=== PATIENT | male | born 2000 | race American Indian/Alaskan Native ===

== ENCOUNTER 2020-06-12 10:58 | Emergency (ER) | payer SELFPAY ==
[2020-06-12] MEDS ORDERED: SODIUM CHLORIDE 0.9% 1000 ML 1,000 ML IV ONE (11:17)
[2020-06-12] MEDS ORDERED: ONDANSETRON 4 MG/2 ML INJ IV ONE (11:25)
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
--- NOTE | 2020-06-12 12:01 | Cat Scan Report ---
CT head/brain wo con INDICATION / CLINICAL INFORMATION: 19 years Male; MAIN. TECHNIQUE: Routine CT head without contrast. All CT scans at this location are performed using CT dos e reduction for ALARA by means of automated exposure control. COMPARISON: None. FINDINGS: BRAIN / INTRACRANIAL CONTENTS: There may be a very small subdural hematoma leftward of midline, along the anterior falx cerebri measuring 1-2 mm in maximum thickness. Couple of small gas bubbles are seen in the soft tissues near the temporomandibular joints and perhap s along the inner table of the left parietal temporal region. Findings may be related to IV placement . However, subtle skull base fractures may be present - CT of the temporal bones may be of benefit. Otherwise, no acute hemorrhage, mass effect, midline shift, hydrocephalus, or acute, large territori al infarct. No chronic infarct or atrophy appreciated. No significant white matter abnormality. CRANIOCERVICAL JUNCTION: No significant abnormality. ORBITS: No significant abnormality of visualized orbits. SINUSES / MASTOIDS: No significant abnormality in the visualized paranasal sinuses or mastoid air varsha ls. ADDITIONAL FINDINGS: Mild subcutaneous soft tissue swelling suggested in the right posterior parietal region. No definitive signs of underlying calvarial fracture appreciated. IMPRESSION: 1. Very small subdural hematoma suggested along the anterior falx cerebri, leftward of midline. Follo w-up exam is recommended to ensure stability and/or resolution of this finding. 2. Cannot exclude small, nondisplaced temporal bone fractures - CT of the temporal bones may be helpf ul for further evaluation. Signer Name: Daryl Dow MD, III Signed: 06/12/2020 11:56 AM Workstation Name: [id number]
[2020-06-12 12:03] LABS: Basophils % (Auto) 0.1 % (0.0-1.8); Eosinophils # (Auto) 0.1 K/mm3 (0.0-0.4); Eosinophils % (Auto) 0.7 % (0.0-4.3); Hematocrit 48.9 % (35.5-45.6); Hemoglobin 16.5 gm/dl (11.8-15.2); Lymphocytes # (Auto) 1.7 K/mm3 (1.2-5.4); Lymphocytes % (Auto) 10.6 % (13.4-35.0); Mean Corpuscular HGB Conc 34 % (32-34); Mean Corpuscular Volume 90 fl (84-94); Monocytes # (Auto) 0.8 K/mm3 (0.0-0.8); Monocytes % (Auto) 4.9 % (0.0-7.3); Platelet Count 210 K/mm3 (140-440); Red Blood Count 5.44 M/mm3 (3.65-5.03)
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
[2020-06-12 12:13] LABS: INR 0.94 (0.87-1.13)
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
[2020-06-12 12:25] LABS: Alanine Aminotransferase 28 units/L (7-56); BUN/Creatinine Ratio 14; Blood Urea Nitrogen 13 mg/dL (9-20); Hemolysis Index 17
[2020-06-12 15:00] VITALS: BP 112/61
== END 2020-06-12 15:00 | disposition other institution (70) ==
LOC: ED 10:58
DX: S06.5X0A Traumatic subdural hemorrhage without loss of consciousness, initial encounter (principal); S02.19XA Other fracture of base of skull, initial encounter for closed fracture; W13.8XXA Fall from, out of or through other building or structure, initial encounter; Y93.89 Activity, other specified; Y92.89 Other specified places as the place of occurrence of the external cause; Y99.8 Other external cause status
CPT/HCPCS: 36415; 70450; 71045; 72125; 72170; 80053; 85025; 85610; 85730; 96361; 96374; 99285; J2405; J7030; 80320; G0480